=== PATIENT | male | born 1985 | race American Indian/Alaskan Native ===

== ENCOUNTER 2019-03-19 10:51 | Emergency (ER) | payer SELFPAY ==
[2019-03-19] MEDS ORDERED: SODIUM CHLORIDE 0.9% 1000 ML 1,000 ML IV ONE (11:05)
[2019-03-19] MEDS ORDERED: ONDANSETRON 4 MG/2 ML INJ IV ONE (11:06)
[2019-03-19 12:05] LABS: Hemoglobin 17.1 gm/dl (11.8-15.2); Mean Corpuscular HGB Conc 34 % (32-34); Mean Corpuscular Volume 91 fl (84-94); Platelet Count 280 K/mm3 (140-440); Red Blood Count 5.51 M/mm3 (3.65-5.03); Red Cell Distribution Width 12.7 % (13.2-15.2)
[2019-03-19 12:25] LABS: BUN/Creatinine Ratio 11; Blood Urea Nitrogen 16 mg/dL (9-20); Calcium 9.9 mg/dL (8.4-10.2)
[2019-03-19 12:26] LABS: Alanine Aminotransferase 16 units/L (7-56); Albumin 4.8 g/dL (3.9-5); Hemolysis Index 22
[2019-03-19 12:58] LABS: Basophils % (Manual) 0 % (0.0-1.8); Eosinophils % (Manual) 0 % (0.0-4.3); Total Cells Counted 100
[2019-03-19 12:59] LABS: Anisocytosis Few; Platelet Estimate Consistent w Auto
[2019-03-19 14:05] VITALS: BP 123/74
[2019-03-19] MEDS ORDERED: DOXYCYCLINE 100 MG CAPSULE PO ONE (14:21)
[2019-03-19] MEDS ORDERED: predniSONE 20 MG TAB PO ONE (14:21)
--- NOTE | 2019-03-19 14:29 | Emergency Department Report ---
ED Syncope HPI - General Chief Complaint: Syncope Stated Complaint: UNRESPONSIVE Time Seen by Provider: 03/19/19 11:04 - History of Present Illness Initial Comments: Mr. Tovar is a 33-year-old male with history of tobacco abuse and bronchitis who presents after syncopal episode via EMS. 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 He then had a brief moment of syncope witnessed. EMS. He's had a cough and wheezing for the past several days. Denies fever. Denies chest pain. Denies abdominal pain. Timing/Prior Episodes: single episode today Precipitating Factors: Positive: lightheadedness, nausea Context: activity Loss of Consciousness: brief (seconds) Current Symptoms: back to normal - Related Data Allergies/Adverse Reactions: Allergies No Known Allergies Allergy (Unverified 03/19/19 12:56) Home Medications: Ambulatory Orders ALBUTEROL Inhaler (OR & NICU) [ProAir HFA Inhaler] 2 puff IH QID PRN #8.5 gram 03/19/19 Doxycycline Hyclate [Doxycycline Hyclate TAB] 100 mg PO Q12HR 7 Days #14 tab 03/19/19 predniSONE [Deltasone] 3 tab PO QDAY 3 Days #9 tab 03/19/19 ED Review of Systems ROS: Stated complaint: UNRESPONSIVE Other details as noted in HPI Comment: All other systems reviewed and negative Constitutional: malaise Respiratory: cough, wheezing Gastrointestinal: nausea, vomiting ED Past Medical Hx - Past Medical History Previous Medical History?: Yes Additional medical history: Bronchitis - Social History Smoking Status: Current Every Day Smoker Substance Use Type: None - Medications Home Medications: Home Medications Medication Instructions Recorded Confirmed Last Taken Type ALBUTEROL Inhaler (OR & NICU) 2 puff IH QID PRN #8.5 gram 03/19/19 Unknown Rx [ProAir HFA Inhaler] Doxycycline Hyclate [Doxycycline 100 mg PO Q12HR 7 Days #14 tab 03/19/19 Unknown Rx Hyclate TAB] predniSONE [Deltasone] 3 tab PO QDAY 3 Days #9 tab 03/19/19 Unknown Rx ED Physical Exam - General Limitations: No Limitations General appearance: alert, in no apparent distress - Head Head exam: Present: atraumatic, normocephalic - Eye Eye exam: Present: normal appearance - ENT ENT exam: Present: mucous membranes moist - Neck Neck exam: Present: normal inspection, full ROM - Respiratory Respiratory exam: Present: wheezes, prolonged expiratory. Absent: respiratory distress, rales, rhonchi, chest wall tenderness, accessory muscle use, decreased breath sounds - Cardiovascular Cardiovascular Exam: Present: regular rate, normal rhythm, normal heart sounds. Absent: systolic murmur, diastolic murmur, rubs, gallop - GI/Abdominal GI/Abdominal exam: Present: soft, normal bowel sounds. Absent: distended, tenderness, guarding, rebound - Rectal Rectal exam: Present: deferred - Extremities Exam Extremities exam: Present: normal inspection - Neurological Exam Neurological exam: Present: alert, oriented X3 - Psychiatric Psychiatric exam: Present: normal affect, normal mood - Skin Skin exam: Present: warm, dry, intact, normal color. Absent: rash ED Course Vital Signs 03/19/19 03/19/19 11:11 14:02 Temperature 98.2 F Pulse Rate 96 H 85 Respiratory 17 19 Rate Blood Pressure 114/73 Blood Pressure 123/74 [Left] O2 Sat by Pulse 95 95 Oximetry ED Medical Decision Making - Lab Data Result diagrams: 03/19/19 11:31 03/19/19 11:31 Laboratory Results - last 24 hr 03/19/19 03/19/19 11:31 11:31 WBC 11.2 H RBC 5.51 H Hgb 17.1 H Hct 50.0 H MCV 91 MCH 31 MCHC 34 RDW 12.7 L Plt Count 280 Lymph % (Auto) Not Reportable [place] % (Auto) Not Reportable Eos % (Auto) Not Reportable Baso % (Auto) Not Reportable Lymph # Not Reportable [place] # Not Reportable Eos # Not Reportable Baso # Not Reportable Add Manual Diff Complete Total Counted 100 Seg Neuts % (Manual) 81.0 H Band Neutrophils % 0 Lymphocytes % (Manual) 16.0 Reactive Lymphs % (Man) 0 Monocytes % (Manual) 3.0 Eosinophils % (Manual) 0 Basophils % (Manual) 0 Metamyelocytes % 0 Myelocytes % 0 Promyelocytes % 0 Blast Cells % 0 Nucleated RBC % Not Reportable Seg Neutrophils # Not Reportable Seg Neutrophils # Man 9.1 H Band Neutrophils # 0.0 Lymphocytes # (Manual) 1.8 Abs React Lymphs (Man) 0.0 Monocytes # (Manual) 0.3 Eosinophils # (Manual) 0.0 Basophils # (Manual) 0.0 Metamyelocytes # 0.0 Myelocytes # 0.0 Promyelocytes # 0.0 Blast Cells # 0.0 WBC Morphology Not Reportable Hypersegmented Neuts Not Reportable Hyposegmented Neuts Not Reportable Hypogranular Neuts Not Reportable Smudge Cells Not Reportable Toxic Granulation Not Reportable Toxic Vacuolation Not Reportable Dohle Bodies Not Reportable Pelger-Huet Anomaly Not Reportable Faizan Rods Not Reportable Platelet Estimate Consistent w auto Clumped Platelets Not Reportable Plt Clumps, EDTA Not Reportable Large Platelets Not Reportable Giant Platelets Not Reportable Platelet Satelliting Not Reportable Plt Morphology Comment Not Reportable RBC Morphology Not Reportable Dimorphic RBCs Not Reportable Polychromasia Not Reportable Hypochromasia Not Reportable Poikilocytosis Not Reportable Anisocytosis Few Microcytosis Not Reportable Macrocytosis Not Reportable Spherocytes Not Reportable Pappenheimer Bodies Not Reportable Sickle Cells Not Reportable Target Cells Not Reportable Tear Drop Cells Not Reportable Ovalocytes Not Reportable Helmet Cells Not Reportable [place] Bodies Not Reportable [place] Rings Not Reportable [place] Cells Not Reportable Bite Cells Not Reportable Crenated Cell Not Reportable Elliptocytes Not Reportable Acanthocytes (Spur) Not Reportable Rouleaux Not Reportable Hemoglobin C Crystals Not Reportable Schistocytes Not Reportable Malaria parasites Not Reportable Jaiden Bodies Not Reportable Hem Pathologist Commnt No Sodium 140 Potassium 4.7 Chloride 101.9 Carbon Dioxide 19 L Anion Gap 24 BUN 16 Creatinine 1.5 Estimated GFR > 60 BUN/Creatinine Ratio 11 Glucose 102 H Calcium 9.9 Total Bilirubin 0.30 AST 19 ALT 16 Alkaline Phosphatase 54 Total Protein 7.7 Albumin 4.8 Albumin/Globulin Ratio 1.7 - Medical Decision Making 1. Syncope after with preceding vomiting. No embolism or cardiac disease from clinical presentation. Given IV fluids. Hemoconcentration seen on H&H. Suspected dehydration. 2. Acute bronchitis: Prescribed doxycycline, prednisone and albuterol strongly recommended to cease smoking. He has been on a monitor for several hours without cardiac incident. Critical care attestation.: If time is entered above; I have spent that time in minutes in the direct care of this critically ill patient, excluding procedure time. ED Disposition Clinical Impression: Syncope, Acute bronchitis Disposition: [id number] TO HOME OR SELFCARE Is pt being admited?: No Does the pt Need Aspirin: No Condition: Stable Instructions: Syncope (ED), Acute Bronchitis (ED) Prescriptions: predniSONE [Deltasone] 3 tab PO QDAY 3 Days #9 tab Doxycycline Hyclate [Doxycycline Hyclate TAB] 100 mg PO Q12HR 7 Days #14 tab ALBUTEROL Inhaler (OR & NICU) [ProAir HFA Inhaler] 2 puff IH QID PRN #8.5 gram PRN Reason: Shortness Of Breath Forms: Work/School Release Form(ED)
== END 2019-03-19 14:45 | disposition home or self-care (01) ==
LOC: ED 10:51
DX: J20.9 Acute bronchitis, unspecified (principal); R55 Syncope and collapse; F17.200 Nicotine dependence, unspecified, uncomplicated; R11.2 Nausea with vomiting, unspecified; Z79.899 Other long term (current) drug therapy
CPT/HCPCS: 36415; 80053; 85007; 85025; 93005; 93010; 96374; 99284; J2405; J7030; J7512